=== PATIENT | female | born 1960 | race Hispanic/Latino ===

== ENCOUNTER 2017-03-01 09:36 | Emergency (ER) | payer BC ==
[2017-03-01 09:52] VITALS: BMI 38.0
[2017-03-01] MEDS ORDERED: Labetalol 5 mg/ml Inj 20ML IV STA ×2 (10:04→11:42)
--- NOTE | 2017-03-01 10:10 | ED PDOC ---
Arrival/HPI - General Chief Complaint: High Blood Pressure Time Seen by Provider: 03/01/17 09:44 Historian: Patient - History of Present Illness Narrative History of Present Illness (Text): 03/01/17 10:05 A 56 year old female, whose past medical history includes hypertension, presents to the emergency department complaining of a headache and dizziness since yesterday. Patient describes her headache as a pressure sensation. She reports she has not been complaint with her blood pressure medication for 1 month. She states she took 2 Diovan 160mg each last night and this morning. Patient is currently asymptomatic and denies any complaints. Patient denies any fever, chills, nausea, vomiting, abdominal pain, chest pain, shortness of breath or any other complaints. PMD: Dr. Zepeda Time/Duration: Other (yesterday) Symptom Course: Resolved (currently) Quality: Pressure Context: Home Past Medical History - Provider Review Nursing Documentation Reviewed: Yes - Infectious Disease Hx of Infectious Diseases: None - Reproductive Menopause: Yes - Cardiac Hx Cardiac Disorders: Yes Hx Hypertension: Yes - Pulmonary Hx Respiratory Disorders: No - Neurological Hx Neurological Disorder: No - HEENT Hx HEENT Disorder: No - Renal Hx Renal Disorder: No - Endocrine/Metabolic Hx Endocrine Disorders: No - Hematological/Oncological Hx Blood Disorders: No - Integumentary Hx Dermatological Disorder: No - Musculoskeletal/Rheumatological Hx Musculoskeletal Disorders: No - Gastrointestinal Hx Gastrointestinal Disorders: No - Genitourinary/Gynecological Hx Genitourinary Disorders: No - Psychiatric Hx Psychophysiologic Disorder: No Hx Substance Use: No - Surgical History Other/Comment: left knee ACL, b/l arm surgery. - Anesthesia Hx Anesthesia: Yes Hx Anesthesia Reactions: No Hx Malignant Hyperthermia: No Family/Social History - Physician Review Nursing Documentation Reviewed: Yes Family/Social History: No Known Family HX Smoking Status: Never Smoked Hx Alcohol Use: Yes Frequency of alcohol use: Daily Hx Substance Use: No Allergies/Home Meds Allergies/Adverse Reactions: Allergies No Known Allergies Allergy (Verified 07/23/16 19:21) Home Medications: Home Meds Medication Instructions Recorded Confirmed Valsartan [Diovan] 320 mg PO DAILY 03/01/17 03/01/17 Review of Systems - Physician Review All systems were reviewed & negative as marked: Yes - Review of Systems Constitutional: absent: Fevers, Night Sweats Respiratory: absent: SOB Cardiovascular: absent: Chest Pain Gastrointestinal: absent: Abdominal Pain, Nausea, Vomiting Neurological: Headache, Dizziness Physical Exam Vital Signs Reviewed: Yes Vital Signs Temp Pulse Resp BP Pulse Ox 03/01/17 12:57 67 18 132/77 98 03/01/17 11:54 98.2 F 17 156/87 H 98 03/01/17 11:18 67 18 160/97 H 98 03/01/17 10:42 69 187/102 H 03/01/17 09:51 98.0 F 72 18 194/110 H 97 Temperature: Afebrile Blood Pressure: Hypertensive Pulse: Regular Respiratory Rate: Normal Appearance: Positive for: Well-Appearing, Non-Toxic, Comfortable Pain Distress: None Mental Status: Positive for: Alert and Oriented X 3 - Systems Exam Head: Present: Atraumatic, Normocephalic Pupils: Present: PERRL Extroacular Muscles: Present: EOMI Conjunctiva: Present: Normal Mouth: Present: Moist Mucous Membranes Pharnyx: Present: Normal Neck: Present: Normal Range of Motion. No: JVD Respiratory/Chest: Present: Clear to Auscultation, Good Air Exchange. No: Respiratory Distress, Accessory Muscle Use Cardiovascular: Present: Regular Rate and Rhythm, Normal S1, S2. No: Murmurs Abdomen: Present: Normal Bowel Sounds. No: Tenderness, Distention, Peritoneal Signs Back: Present: Normal Inspection Upper Extremity: Present: Normal Inspection. No: Cyanosis, Edema Lower Extremity: Present: Normal Inspection. No: Edema Neurological: Present: GCS=15, CN II-XII Intact, Speech Normal, Motor Func Grossly Intact, Normal Sensory Function, Normal Cerebellar Funct, Gait Normal, Memory Normal, Normal 2Pt Descrimination Skin: Present: Warm, Dry, Normal Color. No: Rashes Psychiatric: Present: Alert, Oriented x 3, Normal Insight, Normal Concentration Medical Decision Making ED Course and Treatment: 03/01/17 10:05 Impression: A 56 year old female with a headache and dizziness. Patient has not been compliant with her blood pressure medication. Differential Diagnosis included but are not limited to: Uncontrolled hypertension Plan: -- Labs -- Labetalol -- Reassess and disposition Progress Notes: EKG shows NSR at [address]-segment elevations, normal intervals, normal axis. Interpreted by me. Patient's blood pressure improved after Labetalol 20mg IV. Second dose was cancelled. Patient is still asymptomatic. She will now continue to taker her HTN medication and follow up with her primary care doctor. She was advised to return to the ED if symptoms worsen or any other concern. - Lab Interpretations Lab Results: 03/01/17 10:46 03/01/17 10:46 Lab Results 03/01/17 10:46: Sodium 142, Potassium 4.0, Chloride 106, Carbon Dioxide 25, Anion Gap 15, BUN 17, Creatinine 0.5, Est GFR ( Amer) > 60, Est GFR (Non- Af Amer) > 60, Random Glucose 92, Calcium 8.8 03/01/17 10:46: WBC 5.0, RBC 4.74, Hgb 14.1, Hct 41.5, MCV 87.6, MCH 29.7, MCHC 34.0, RDW 13.6, Plt Count 290, MPV 10.1, Gran % 57.3, Lymph % (Auto) 28.9, [place] % (Auto) 5.0, Eos % (Auto) 8.2 H, Baso % (Auto) 0.6, Gran # 2.85, Lymph # 1.4, [place] # 0.3, Eos # 0.4, Baso # 0.03 I have reviewed the lab results: Yes - Medication Orders Current Medication Orders: Discontinued Medications Labetalol HCl (Trandate) 20 mg IV STAT STA Stop: 03/01/17 10:05 Last Admin: 03/01/17 10:42 Dose: 20 mg eMAR Start Stop Document 03/01/17 10:42 [facility] (Rec: 03/01/17 10:43 [id number] Intravenous Solution Start Date 03/01/17 Start Time 10:43 End Date 03/01/17 End time 10:43 Total Infusion Time 0 MAR Pulse and Blood Pressure Document 03/01/17 10:42 [facility] (Rec: 03/01/17 10:43 [id number] Pulse Pulse Rate (60-90) 69 Blood Pressure Blood Pressure (100/60-150/90) 187/102 Labetalol HCl (Trandate) 40 mg IV STAT STA Stop: 03/01/17 11:43 - Scribe Statement The provider has reviewed the documentation as recorded by the Jaime Wolff Provider Scribe Attestation: All medical record entries made by the Scribe were at my direction and personally dictated by me. I have reviewed the chart and agree that the record accurately reflects my personal performance of the history, physical exam, medical decision making, and the department course for this patient. I have also personally directed, reviewed, and agree with the discharge instructions and disposition. Disposition/Present on Arrival - Present on Arrival Any Indicators Present on Arrival: No History of DVT/PE: No History of Uncontrolled Diabetes: No Urinary Catheter: No History of Decub. Ulcer: No History Surgical Site Infection Following: None - Disposition Have Diagnosis and Disposition been Completed?: Yes Diagnosis: Hypertension Disposition: HOME/ ROUTINE Disposition Time: 12:57 Patient Plan: Discharge Condition: IMPROVED Discharge Instructions (ExitCare): Hypertension (ED) Additional Instructions: Ms Gardner, thank you for letting us take care of you today. Your provider was Dr. Dozier. You were treated for Hypertension. The emergency medical care you received today was directed at your acute symptoms. If you were prescribed any medication, please fill it and take as directed. It may take several days for your symptoms to resolve. Return to the Emergency Department if your symptoms worsen, do not improve, or if you have any other problems. Please contact your doctor or call one of the physicians/clinics you have been referred to that are listed on the Patient Visit Information form that is included in your discharge packet. Bring any paperwork you were given at discharge with you along with any medications you are taking to your follow up visit. Our treatment cannot replace ongoing medical care by a primary care provider (PCP) outside of the emergency department. Thank you for allowing the [facility] team to be part of your care today. If you had an X-Ray or CT scan: A Radiologist will review the ED reading if any change in treatment is needed we will contact you. If you had a blood, urine, or wound culture: It will take several days for the results, if any change in treatment is needed we will contact you. If you had an STI test: It will take 48 hours for the results. Please call after 1 week if you have not heard back. Prescriptions: Valsartan [Diovan] 320 mg PO DAILY #30 tab Referrals: Arturo Zepeda MD [Primary Care Provider] - Follow up with primary Forms: [email or web address] ([place])
[2017-03-01 10:51] LABS: BASO # 0.03 K/mm3 (0.0-2.0); BASO % 0.6 % (0.0-3.0); EOS # 0.4 (0.0-0.7); EOS % 8.2 % (1.5-5.0); GRAN # 2.85 (1.4-6.5); GRAN % 57.3 % (50.0-68.0); HEMATOCRIT 41.5 % (36.0-48.0); LYMPH # 1.4 (1.2-3.4); LYMPH % 28.9 % (22.0-35.0); MEAN CELL VOLUME 87.6 fl (80.0-105.0); MEAN CORPUSCULAR HEMOGLOBIN 29.7 pg (25.0-35.0); MEAN PLATELET VOLUME 10.1 fl (7.0-11.0); MONO # 0.3 (0.1-0.6); RED CELL DISTRIBUTION WIDTH 13.6 % (11.5-14.5)
[2017-03-01 11:00] LABS: BLOOD UREA NITROGEN 17 mg/dL (7-21); CALCIUM 8.8 mg/dL (8.4-10.5); CARBON DIOXIDE 25 mmol/L (21-33); CHLORIDE 106 mmol/L (98-107); GFR AFRICAN-AMERICAN > 60; GLUCOSE,RANDOM 92 mg/dL (70-110); SODIUM 142 mmol/L (132-148)
[2017-03-01 11:19] VITALS: PULSE 67; O2SAT 98
[2017-03-01 11:54] VITALS: TEMP 98.2
[2017-03-01 12:59] VITALS: BP 132/77; RESP 18
--- NOTE | 2017-03-01 18:47 | CARD ---
APPROVED REPORT EKG Measurement Heart [id number] <Conclusion> Normal sinus rhythm Normal ECG
== END 2017-03-01 12:59 | disposition home or self-care (01) ==
LOC: ED 09:36
DX: I10 Essential (primary) hypertension (principal); Z91.19 Patient's noncompliance with other medical treatment and regimen

== ENCOUNTER 2017-03-02 07:44 | Emergency (ER) | payer BC ==
[2017-03-02 07:45] VITALS: BMI 38.0
[2017-03-02 08:07] VITALS: BP 164/91; PULSE 76; RESP 18; TEMP 98.4; O2SAT 97
--- NOTE | 2017-03-02 08:10 | ED PDOC ---
Arrival/HPI - General Time Seen by Provider: 03/02/17 07:48 Historian: Patient - History of Present Illness Narrative History of Present Illness (Text): 03/02/17 08:00 Rene Gardner is a 56 year old female, whose past medical history includes hypertension, presents to the emergency department sent in by her PMD for high blood pressure being 186/110 this morning. Patient reports feeling pressure mainly at the top of her head but that resolved prior to arrival. She states she took 2 Diovan, one last night and one this morning. Patient is currently asymptomatic and denies any complaints. Patient denies any fever, chills, nausea , vomiting, abdominal pain, chest pain, shortness of breath or any other complaints. PMD: Dr. Zepeda Time/Duration: 1-3 hours Symptom Onset: Sudden Symptom Course: Improving Activities at Onset: Light Context: Home Associated Symptoms (Text): pressure at the top of head Past Medical History - Provider Review Nursing Documentation Reviewed: Yes - Infectious Disease Hx of Infectious Diseases: None - Cardiac Hx Cardiac Disorders: Yes Hx Hypertension: Yes - Pulmonary Hx Respiratory Disorders: No - Neurological Hx Neurological Disorder: No - HEENT Hx HEENT Disorder: No - Renal Hx Renal Disorder: No - Endocrine/Metabolic Hx Endocrine Disorders: No - Hematological/Oncological Hx Blood Disorders: No - Integumentary Hx Dermatological Disorder: No - Musculoskeletal/Rheumatological Hx Musculoskeletal Disorders: No - Gastrointestinal Hx Gastrointestinal Disorders: No - Genitourinary/Gynecological Hx Genitourinary Disorders: No - Psychiatric Hx Psychophysiologic Disorder: No Hx Substance Use: No - Surgical History Other/Comment: left knee ACL, b/l arm surgery. - Anesthesia Hx Anesthesia: Yes Hx Anesthesia Reactions: No Hx Malignant Hyperthermia: No Family/Social History - Physician Review Nursing Documentation Reviewed: Yes Family/Social History: Unknown Family HX Smoking Status: Never Smoked Hx Alcohol Use: Yes Hx Substance Use: No Allergies/Home Meds Allergies/Adverse Reactions: Allergies No Known Allergies Allergy (Verified 03/02/17 08:07) Home Medications: Home Meds Medication Instructions Recorded Confirmed Valsartan [Diovan] 320 mg PO DAILY 03/01/17 03/02/17 Review of Systems - Review of Systems Constitutional: absent: Fevers Respiratory: absent: SOB, Cough Cardiovascular: absent: Chest Pain Gastrointestinal: absent: Abdominal Pain Neurological: Other (pressure on headdue to high blood pressure) Physical Exam Vital Signs Reviewed: Yes Vital Signs Temp Pulse Resp BP Pulse Ox 03/02/17 08:03 98.4 F 76 18 164/91 H 97 Temperature: Afebrile Blood Pressure: Hypertensive Pulse: Regular Respiratory Rate: Normal Appearance: Positive for: Well-Appearing, Non-Toxic, Comfortable Pain Distress: None Mental Status: Positive for: Alert and Oriented X 3 - Systems Exam Head: Present: Atraumatic, Normocephalic Pupils: Present: PERRL Extroacular Muscles: Present: EOMI Conjunctiva: Present: Normal Mouth: Present: Moist Mucous Membranes Neck: Present: Normal Range of Motion Respiratory/Chest: Present: Clear to Auscultation, Good Air Exchange. No: Respiratory Distress, Accessory Muscle Use Cardiovascular: Present: Regular Rate and Rhythm, Normal S1, S2. No: Murmurs Abdomen: Present: Normal Bowel Sounds. No: Tenderness, Distention, Peritoneal Signs Upper Extremity: Present: Normal Inspection. No: Cyanosis, Edema Lower Extremity: Present: Normal Inspection. No: Edema Neurological: Present: GCS=15, CN II-XII Intact, Speech Normal, Motor Func Grossly Intact, Normal Sensory Function, Normal Cerebellar Funct, Gait Normal, Memory Normal, Normal 2Pt Descrimination Skin: Present: Warm, Dry, Normal Color. No: Rashes Psychiatric: Present: Alert, Oriented x 3, Normal Insight, Normal Concentration Medical Decision Making ED Course and Treatment: 03/02/17 Impression: 56 year old female with high blood pressure sent in by PMD for evaluation. Plan: -- Microzide -- Diovan -- Reassess and disposition Progress Notes: 03/02/17 08:20 Case was discussed with Dr. Zepeda, who recommends giving patient 12.5 hydrochlorothizide to her Diovan and have her follow up with him in one week. - Medication Orders Current Medication Orders: Discontinued Medications Hydrochlorothiazide (Microzide) 12.5 mg PO STAT STA Stop: 03/02/17 08:16 Last Admin: 03/02/17 08:27 Dose: 12.5 mg - Scribe Statement The provider has reviewed the documentation as recorded by the Jaime Chaves Provider Scribe Attestation: All medical record entries made by the Jaime were at my direction and personally dictated by me. I have reviewed the chart and agree that the record accurately reflects my personal performance of the history, physical exam, medical decision making, and the department course for this patient. I have also personally directed, reviewed, and agree with the discharge instructions and disposition. Disposition/Present on Arrival - Present on Arrival Any Indicators Present on Arrival: No History of DVT/PE: No History of Uncontrolled Diabetes: No Urinary Catheter: No History Surgical Site Infection Following: None - Disposition Have Diagnosis and Disposition been Completed?: Yes Diagnosis: Hypertension Disposition: HOME/ ROUTINE Disposition Time: 08:33 Patient Plan: Discharge Condition: IMPROVED Discharge Instructions (ExitCare): Hypertension (ED) Additional Instructions: Ms Gardner, thank you for letting us take care of you today. Your provider was Dr. Dozier. You were treated for Hypertension. The emergency medical care you received today was directed at your acute symptoms. If you were prescribed any medication, please fill it and take as directed. It may take several days for your symptoms to resolve. Return to the Emergency Department if your symptoms worsen, do not improve, or if you have any other problems. Please contact your doctor or call one of the physicians/clinics you have been referred to that are listed on the Patient Visit Information form that is included in your discharge packet. Bring any paperwork you were given at discharge with you along with any medications you are taking to your follow up visit. Our treatment cannot replace ongoing medical care by a primary care provider (PCP) outside of the emergency department. Thank you for allowing the [facility] team to be part of your care today. If you had an X-Ray or CT scan: A Radiologist will review the ED reading if any change in treatment is needed we will contact you. If you had a blood, urine, or wound culture: It will take several days for the results, if any change in treatment is needed we will contact you. If you had an STI test: It will take 48 hours for the results. Please call after 1 week if you have not heard back. Prescriptions: Valsartan/Hydrochlorothiazide [Diovan Hct 320-12.5 mg Tab] 1 each PO DAILY #30 tablet Referrals: Arturo Zepeda MD [Primary Care Provider] - Follow up with primary Forms: [email or web address] ([place]), WORK NOTE
== END 2017-03-02 08:34 | disposition home or self-care (01) ==
LOC: ED 07:44
DX: I10 Essential (primary) hypertension (principal)